=== PATIENT | female | born 1965 | race African-American/Black ===

== ENCOUNTER 2017-11-16 12:33 | Outpatient (CLI) | payer OTHER ==
[~2017-11-16 12:33] MED LIST: AMLODIPINE BESY10 MG; LISINOPRIL20 MG PO; NORVASC10 MG PO; PRINIVIL20 MG
== END 2017-11-16 12:39 | disposition home or self-care (01) ==
LOC: MAMO-SONO 12:33
DX: Z12.31 Encounter for screening mammogram for malignant neoplasm of breast (principal)

== ENCOUNTER 2018-12-27 14:13 | Outpatient (CLI) | payer OTHER | END 2018-12-27 14:17 | disposition home or self-care (01) | LOC: MAMO-SONO 14:13 | DX: Z12.31 Encounter for screening mammogram for malignant neoplasm of breast (principal) ==

== ENCOUNTER 2019-12-05 10:30 | Outpatient (CLI) | payer OTHER | END 2019-12-05 10:45 | disposition home or self-care (01) | LOC: MAMO-SONO 10:30 | PROVIDERS: ATTEND Family Medicine | DX: Z12.31 Encounter for screening mammogram for malignant neoplasm of breast (principal) ==